=== PATIENT | male | born 1980 | race Caucasian/White ===

== ENCOUNTER 2021-10-23 13:40 | Emergency (ER) | payer BC ==
[~2021-10-23] VITALS: Ht 167.6 cm; Wt 72.6 kg
--- NOTE | ~2021-10-23 | O ---
[facility] [place] [place] [address] OPERATIVE REPORT Name: BRUNILDA JOHNSON Room #: [facility] [id number] Admission: 10/23/21 Attend Phys: Discharge: Date of : 76 Report #: [id number] THIS REPORT FOR: cc: FAM - Family physician unknown FAM - Family physician unknown Gomez Plascencia MD ~ DATE OF SERVICE: 10/23/2021 DATE OF PROCEDURE: 10/23/2021 PREOPERATIVE DIAGNOSES: Esophageal food bolus obstruction, dysphagia. POSTOPERATIVE DIAGNOSES: Esophageal food bolus obstruction, dysphagia. PROCEDURES: EGD with biopsy and removal of esophageal foreign body. INDICATIONS: The patient is a 41-year-old gentleman who swallowed steak about 26 hours ago. He has been unable to handle his secretions since. This procedure is being performed to address these symptoms. The benefits and risks of procedure were explained and informed written consent was obtained. DESCRIPTION OF PROCEDURE: The patient was placed in the left lateral decubitus position. Propofol was provided per the Department of Anesthesia. The Olympus endoscope was inserted through the mouth into the upper esophagus under direct vision. FINDINGS: The proximal and middle esophagus were unremarkable. Bolus of food was encountered in the distal esophagus. I was able to guide the scope around the food bolus and then to the stomach. The food bolus spontaneously passed across the lower esophageal sphincter. There were erosions and shallow ulcers at the GE junction located at 40 cm from the incisors. Three cold forceps biopsies were obtained just above the GE junction. Two additional biopsies were obtained at 30 cm for histology. The stomach was entered and examined. Fluid was suctioned from there. The antrum and body were unremarkable. Duodenal bulb and sweep were entered and examined. These were normal without erythema, erosion or ulceration. Retroflexion exam of the gastric cardia was negative for hiatal hernia or mass. The scope was withdrawn, procedure concluded. He tolerated this without apparent complications. IMPRESSION: 1. Erosive/ulcerative esophagitis. 2. Esophageal food bolus. 3. Successful removal of esophageal food bolus and advancement into the stomach. [facility] [address] [place] [address] OPERATIVE REPORT Name: BRUNILDA JOHNSON Room #: REG HODA Knight#: [id number] Admission: 10/23/21 Attend Phys: Discharge: Date of : 76 Report #: [id number] RECOMMENDATIONS: Dismissed from the hospital once it is deemed appropriate by Anesthesia. Initiate omeprazole 40 mg p.o. q.a.m., 30 minutes before breakfast for 8 weeks. The patient will be notified in 10 days of the pathology results. If the dysphagia does persist despite 8 weeks of PPI therapy, repeat endoscopy with dilation would be appropriate. The patient may have eosinophilic esophagitis, which might change these recommendations. I appreciate the opportunity to participate in care of this pleasant gentleman. By: [id number] Gomez Plascencia MD /job
--- NOTE | ~2021-10-23 | HC ---
[facility] [place] [address] [place] [address] CONSULTATION Name: BRUNILDA JOHNSON Room #: REG BrigderTierneyRagini#: [id number] Admission: 10/23/21 Attend Phys: Discharge: Date of : 76 Report #: [id number] THIS REPORT FOR: cc: FAM - Family physician unknown FAM - Family physician unknown Gomez lPascencia MD ~ DATE OF SERVICE: 10/23/2021 REASON FOR CONSULTATION: Dysphagia and esophageal obstruction. HISTORY OF PRESENT ILLNESS: The patient is a 41-year-old gentleman who swallowed some steak about 26 hours ago. Prior to that time, he would rarely have trouble with dysphagia. This episode lasted much longer than any of the others. He has some mild chest discomfort, but he would not describe it as pain. No shortness of breath. The patient denies chronic heartburn; odynophagia; history of peptic ulcer, pancreatic or liver disease. No mention of hematochezia, melena, diarrhea or constipation. ALLERGIES: Reviewed. PHYSICAL EXAMINATION: GENERAL: The patient is awake and alert. He seems comfortable. VITAL SIGNS: Documented on the chart and are stable. HEENT: The pupils appear equal and round. Extraocular movements seem intact. No scleral icterus or injection. LUNGS: Chest clear to auscultation anteriorly. HEART: Regular rate and rhythm without murmur. No S3. ABDOMEN: Soft. Bowel sounds present. No focal tenderness, distension or hepatosplenomegaly. EXTREMITIES: Without significant edema. RECTAL: Not performed at this time. IMPRESSION: 1. Dysphagia. 2. Esophageal food bolus obstruction. RECOMMENDATIONS: We will proceed with emergent EGD this evening, further suggestions to follow. By: [id number] Gomez Plascencia MD /nt
[2021-10-23] MEDS ORDERED: OMEPRAZOLE40 MG PO (21:48)
[2021-10-23 22:00] VITALS: BP 139/92
--- NOTE | 2021-10-26 14:07 | PATH ---
[facility] [place] [address] PATHOLOGY RPT PROCEDURE Name: VIDAL BROWNLEE GUILLERMINA Room #: DEP Eugene#: [id number] Admission: 10/23/21 Date of : 76 Discharge: 10/23/21 Report #: [id number] Path Case #: [id number] [facility] Accession Number: [id number] . 01 Material submitted: . PART A: esophagus - ESOPHAGUS BIOPSY AT 37 CM PART B: esophagus - ESOPHAGUS BIOPSY AT 30 CM . 01 Clinical history: . FOOD BOLUS, ESOPHAGITIS, DYSPHAGIA PIECE OF STEAK IN THROAT . 02 Diagnosis: A. Esophagus at 37 cm, endoscopic biopsy: - Squamous mucosa with increased intraepithelial eosinophils and basal keratosis. - Negative for malignancy. . B. Esophagus at 30 cm, endoscopic biopsy: - Squamous mucosa with increased intraepithelial eosinophils. Please see comment. (ANK:may; 10/26/2021) S 10/26/2021 1117 Local . 02 Comment: The differential includes moderate reflux esophagitis and eosinophilic esophagitis. Recommend clinical correlation. (ANK:may; 10/26/2021) . 02 Electronically signed: . Coleen Tinsley MD, Pathologist NPI- [id number] . 01 Gross description: . A. The specimen is received in formalin, labeled "Vidal Brownlee, esophagus biopsy at 37 cm". Received are four segments of pale pineda tissue ranging in size from 0.2-0.3 cm in maximum dimensions. The specimen is submitted entirely in cassette A1. . B. The specimen is received in formalin, labeled "Vidal Brownlee, esophagus biopsy at 30 cm". Received is a segment of pale pineda tissue measuring 0.3 cm in maximum dimensions. The specimen is submitted entirely in cassette B1. (CAA; 10/25/2021) QA/[facility] 10/25/2021 1603 Local . 02 Pathologist provided ICD-10: [address] [address] PATHOLOGY RPT PROCEDURE Name: VIDAL BROWNLEE GUILLERMINA Room #: DEP HODA Knight#: [id number] Admission: 10/23/21 Date of : 76 Discharge: 10/23/21 Report #: [id number] Path Case #: [id number] K22.9, R13.10 . 02 CPT . 998750, [id number] Specimen Comment: A courtesy copy of this report has been sent to [phone], [phone] Specimen Comment: [id number] Specimen Comment: Report sent to / DR MONIQUE Performed at: [address], [place] [id number] MD Andi Farris MD Phone: [phone] Performed at: [address] [id number] MD Chuyita Martínez MD Phone: [phone]
== END 2021-10-23 22:00 | disposition home or self-care (01) ==
LOC: ER 13:40
DX: T18.128A Food in esophagus causing other injury, initial encounter (principal); Z20.822 Contact with and (suspected) exposure to COVID-19; Y92.89 Other specified places as the place of occurrence of the external cause
CPT/HCPCS: 62110; 62900; 70005